=== PATIENT | female | born 1980 | race Caucasian/White ===

== ENCOUNTER → 2017-09-25 | Outpatient (CLI) | payer BC ==
--- NOTE | 2017-09-25 15:50 | CT ---
EXAM DESCRIPTION: Pelvis CLINICAL HISTORY: 37 years Female, R93.8 COMPARISON: None. TECHNIQUE: 2.[address] scanning through the pelvis was performed. FINDINGS: Cystic structure in the right iliac fossa is thought to be fluid filled distended cecum. Appendix is not definitely identified. Small bowel loops in the pelvis are unremarkable. Right ovary appears normal. Uterus is normal in size with no cervical enlargement or uterine fibroids. Left ovary appears normal containing physiologic cystic structure measuring 2.5 cm. Distal ureters and bladder are negative for stones. No inguinal or lower pelvic adenopathy. No thickening of the wall of the rectum or sigmoid colon. Bone window images are negative for fracture or lytic lesion. No hip dislocation. Coronal and sagittal reformatted images confirm the findings. On the sagittal images, uterus is mildly anteverted. IMPRESSION: No diagnostic abnormality. Electronically signed by: Graham Smith MD 09/25/2017 3:48 PM CDT
== END ==
LOC: CT 13:40
PROVIDERS: ATTEND Nurse Practitioner
DX: R93.8 Abnormal findings on diagnostic imaging of other specified body structures (principal)

== ENCOUNTER → 2017-10-15 | Outpatient (CLI) | payer BC, OTHER ==
--- NOTE | 2017-10-15 15:20 | RAD ---
EXAM DESCRIPTION: Sacrum CLINICAL HISTORY: 37 years Female, PN IN [facility] (LATERAL ONLY) COMPARISON: CT of the pelvis dated 09/25/2017. TECHNIQUE: Lateral radiographs of the sacrum were obtained. FINDINGS: Difficult visualization due to patient's body habitus. Grossly no abnormality is visualized. IMPRESSION: Limited study due to patient's body habitus. Grossly no radiographic abnormality is noted. Electronically signed by: Adalgisa Malone MD 10/15/2017 3:19 PM CDT
== END ==
LOC: RAD 09:51
PROVIDERS: ATTEND Orthopaedic Surgery
DX: M53.3 Sacrococcygeal disorders, not elsewhere classified (principal)

== ENCOUNTER 2019-10-02 05:27 | Day surgery (SDC) | payer BC ==
[2019-10-02] MEDS ORDERED: LACTATED RINGERS 1,000 ML ONE (06:43)
[2019-10-02] MEDS ORDERED: DEXAMETHASONE INJ 10 MG/ML VIAL ONE (07:00)
[2019-10-02] MEDS ORDERED: LIDOCAINE 1% 10 ML VIAL INJ ONE (07:00)
[2019-10-02] MEDS ORDERED: MAGNESIUM SULFATE INJ 1 GM/2 ML VIAL ONE (07:00)
[2019-10-02] MEDS ORDERED: SODIUM CHLORIDE 0.9% 50 ML VIAL ONE (07:00)
[2019-10-02] MEDS ORDERED: PROPOFOL 200 MG/20 ML VIAL IV ONE (07:00)
[2019-10-02] MEDS ORDERED: FAMOTIDINE 10 MG/ML ML IV ONE (07:00)
[2019-10-02] MEDS ORDERED: diphenhydrAMINE HCL 50 MG/ML VIAL ONE (07:00)
[2019-10-02] MEDS: LACTATED RINGERS 1,000 ML IVS ONE (08:45)
[2019-10-02] MEDS ORDERED: MIDAZOLAM INJ 2 MG/2 ML VIAL ONE (09:54)
[2019-10-02] MEDS ORDERED: DEXMEDETOMIDINE HCL 200 MCG/2 ML INJ IV ONE (09:54)
[2019-10-02] MEDS ORDERED: KETAMINE HCL 100 MG/ML VIAL ONE (09:54)
[2019-10-02] MEDS ORDERED: SUGAMMADEX SODIUM 200 MG/2 ML VIAL IV ONE (09:55)
[2019-10-02] MEDS ORDERED: ROCURONIUM BROMIDE 10 MG/ML VIAL ONE (09:55)
[2019-10-02] MEDS ORDERED: fentaNYL CITRATE INJ 50 MCG/ML 2 ML AMP ONE (09:55)
[2019-10-02] MEDS: BUPIVACAINE 0.5% W/EPI 30 ML VIAL INJ ONE (10:42)
--- NOTE | 2019-10-02 11:20 | OP ---
DATE OF PROCEDURE: 10/02/19 PREOPERATIVE DIAGNOSIS: 1. Right subcutaneous flank mass, tender over sacrum. POSTOPERATIVE DIAGNOSIS: 1. Right subcutaneous flank mass, tender over sacrum. PROCEDURE: 1. Excision, right subcutaneous fatty flank mass, 6x6 cm total. SURGEON: Sina Ayers MD ANESTHESIA: General anesthesia. FINDINGS: There were two of the typical lobulated fatty tumors in that pre- sacral area going down near to the bone. Both that were palpated preoperatively were removed. They were relatively large, put together measured about 6x6 cm, 3 cm tall. COMPLICATIONS: None. ESTIMATED BLOOD LOSS: Minimal. CONDITION: Stable. PLAN: Discharge. INDICATION: As stated. PROCEDURE: In prone position, general anesthesia was induced. The patient was prepped and draped in sterile fashion. The tumors were palpated. A single incision was made. Subcutaneous tissues were taken down. We identified the largest one first. It was dissected from surrounding tissues. It had adhesions to the base near the sacrum. These were ligated across and the small supplying vessels were cauterized until we were assured we had good hemostasis. We went through the tissues superiorly, easily identifying the other one, a large lobulated fatty tumor. This was removed again and hemostasis was required at its base. With irrigation agitation, there was no evidence of any continued bleeding. It was then closed in three layers with absorbable suture and dressing applied. She was awakened and taken to Recovery to be discharged. #[id number] MTDD
[2019-10-02 13:25] VITALS: BP 121/71; TEMP 97.7; O2SAT 98
== END 2019-10-02 13:00 | disposition home or self-care (01) ==
LOC: AMB 05:27
PROVIDERS: ATTEND Surgery
DX: D17.1 Benign lipomatous neoplasm of skin and subcutaneous tissue of trunk (principal); E11.9 Type 2 diabetes mellitus without complications; K21.9 Gastro-esophageal reflux disease without esophagitis; E66.9 Obesity, unspecified; Z87.891 Personal history of nicotine dependence; Z79.84 Long term (current) use of oral hypoglycemic drugs
CPT/HCPCS: 00820; 21931; 36416; 82948; A4216; J1100; J1200; J2250; J3010; J3475; J3490; J7120